=== PATIENT | female | born 1975 | race Caucasian/White ===

== ENCOUNTER → 2018-08-10 | Emergency (ER) | payer MEDICAID ==
[~2018-08-10] VITALS: Ht 165.1 cm; Wt 86.8 kg
[2018-08-10 12:17] VITALS: BP 142/70; PULSE 78; RESP 18; Ht 165.1 cm; Wt 86.8 kg
--- NOTE | 2018-08-10 15:13 | ERD ---
ER Documentation Chief Complaint Chief Complaint vag bleed x 2 days with pain , postive preg test @ home HPI 42-year-old female presents with vaginal bleeding x2 days. Patient states she had a positive test at home 1 week ago and then developed vaginal bleeding 2 days ago. She is been passing clots. G4, . LNMP April 28. Denies medical problems. NKDA. Surgical history . Social history denies ROS All systems reviewed and are negative except as per history of present illness. Allergies Allergies: Coded Allergies: No Known Allergy (Unverified , 08/10/18) PMhx/Soc Medical and Surgical Hx: pt denies Medical Hx, pt denies Surgical Hx Hx Alcohol Use: No Hx Substance Use: No Hx Tobacco Use: No Smoking Status: Never smoker FmHx Family History: No diabetes, No coronary disease, No other Physical Exam Vitals Vital Signs Date Temp Pulse Resp B/P (MAP) Pulse Ox O2 O2 Flow FiO2 Time Delivery Rate 08/10/18 97.8 78 18 142/70 100 12:17 (94) Physical Exam GENERAL: The patient is well-appearing, well-nourished, in no acute distress CHEST: Clear to auscultation bilaterally. There are no rales, wheezes or rhonchi. HEART: Regular rate and rhythm. No murmurs, clicks, rubs or gallops. ABDOMEN: Normal active bowel sounds. No distention. No organomegaly. No lateralized tenderness to palpation. BACK: No midline or flank tenderness. Result Diagram: 08/10/18 1325 Results 24 hrs Laboratory Tests Test 08/10/18 13:25 White Blood Count 7.7 10^3/ul Red Blood Count 4.64 10^6/ul Hemoglobin 12.7 g/dl Hematocrit 37.4 % Mean Corpuscular Volume 80.6 fl Mean Corpuscular Hemoglobin 27.4 pg Mean Corpuscular Hemoglobin Concent 34.0 g/dl Red Cell Distribution Width 12.7 % Platelet Count 248 10^3/UL Mean Platelet Volume 10.0 fl Immature Granulocytes % 0.500 % Neutrophils % 60.3 % Lymphocytes % 31.2 % Monocytes % 5.9 % Eosinophils % 1.2 % Basophils % 0.9 % Nucleated Red Blood Cells % 0.0 /100WBC Immature Granulocytes # 0.040 10^3/ul Neutrophils # 4.6 10^3/ul Lymphocytes # 2.4 10^3/ul Monocytes # 0.5 10^3/ul Eosinophils # 0.1 10^3/ul Basophils # 0.1 10^3/ul Nucleated Red Blood Cells # 0.0 10^3/ul Urine Color YELLOW Urine Clarity SLIGHTLY CLOUDY Urine pH 8.0 Urine Specific [place] 1.011 Urine Ketones NEGATIVE mg/dL Urine Nitrite NEGATIVE mg/dL Urine Bilirubin NEGATIVE mg/dL Urine Urobilinogen NEGATIVE mg/dL Urine Leukocyte Esterase 1+ Jeremy/ul Urine Microscopic RBC > 182 /HPF Urine Microscopic WBC 11 /HPF Urine Squamous Epithelial Cells FEW /HPF Urine Bacteria FEW /HPF Urine Hemoglobin 3+ mg/dL Urine Glucose NEGATIVE mg/dL Urine Total Protein NEGATIVE mg/dl Beta HCG, Quantitative 2061.8 mIU/ml Procedures/MDM DIAGNOSTIC IMAGING REPORT Patient: GLENIS WHALEN : 1975 Age: 42 Sex: F MR #: [id number] DOS: 08/10/18 1311 Ordering MD: AGUSTIN SIERRA PA-C Location: [facility] Room/Bed: PROCEDURE: US OB. CLINICAL INDICATION: Vaginal bleeding. TECHNIQUE: Transabdominal and transvaginal sonographic evaluation of the uterus was performed. COMPARISON: None. FINDINGS: Uterus is anteverted and measures 11.6 x 5.8 x 6.6 cm. There are small cervical Nabothian cysts. Endometrium is heterogeneously thickened with indistinct margins. No intrauterine gestational sac is seen. Right ovary measures 3.5 x 2.7 x 2.4 cm. Left ovary measures 3.3 x 2.1 x 2 cm. No suspicious adnexal masses are seen. There is no free pelvic fluid. IMPRESSION: 1. No visible intrauterine or ectopic . of unknown location. Recommend close follow-up with serial Beta HCG measurements and repeat pelvic sonogram in 7 days to exclude ectopic . MDM: 42-year-old female presenting with p vaginal bleeding. Patient does not have pelvic pain on palpation. Patient states beta hCG is 2000 however no IUP is noted on ultrasound. Patient is likely experiencing a miscarriage as she does not have severe suprapubic tenderness on palpation. Patient is recommended to return in 2 days for recheck of beta-hCG levels. Ectopic is not completely excluded. Patient does not have findings consistent with urinary tract infection. Does not require RhoGam is Rh+. Patient's hemoglobin is stable. Patient is discharged with strict ER precautions and told to follow-up with primary care. Patient is told symptoms change or worsen to return immediately to the ER. All questions answered at discharge Departure Diagnosis: Primary Impression: Threatened Condition: Stable Patient Instructions: Miscarriage (Incomplete) Referrals: COMM[facility]ITY CLIN[facility] YOU HAVE RECEIVED A MEDICAL SCREENING EXAM AND THE RESULTS INDICATE THAT YOU DO NOT HAVE A CONDITION THAT REQUIRES URGENT TREATMENT IN THE EMERGENCY DEPARTMENT. FURTHER EVALUATION AND TREATMENT OF YOUR CONDITION CAN WAIT UNTIL YOU ARE SEEN IN YOUR DOCTORS OFFICE WITHIN THE NEXT 1-2 DAYS. IT IS YOUR RESPONSIBILITY TO MAKE AN APPOINTMENT FOR FOLOW-UP CARE. IF YOU HAVE A PRIMARY DOCTOR --you should call your primary doctor and schedule an appointment IF YOU DO NOT HAVE A PRIMARY DOCTOR YOU CAN CALL OUR PHYSICIAN REFERRAL HOTLINE AT IF YOU CAN NOT AFFORD TO SEE A PHYSICIAN YOU CAN CHOSE FROM THE FOLLOWING [facility] [address] [facility] [address] [facility] [address] [facility] [address] [facility] [address] [facility]. [facility]. [address] Additional Instructions: FOLLOW UP WITH YOUR PRIMARY CARE PHYSICIAN TOMORROW.Return to this facility if you are not improving as expected. VILLA SIERRA PA-C Aug 10, 2018 15:13
== END | disposition home or self-care (01) ==
LOC: FTE 11:53
DX: O20.0 Threatened abortion (principal); Z3A.00 Weeks of gestation of pregnancy not specified
CPT/HCPCS: 36415; 76801; 76817; 81001; 84702; 85025; 86900; 86901; Z7502

== ENCOUNTER 2018-08-13 11:13 | Emergency (ER) | payer MEDICAID ==
[~2018-08-13] VITALS: Ht 167.6 cm; Wt 86.8 kg
[2018-08-13 11:24] VITALS: Ht 167.6 cm; Wt 86.8 kg
--- NOTE | 2018-08-13 14:48 | ERD ---
ER Documentation Chief Complaint Chief Complaint REPEAT BLOOD WORK & ULTRASOUND HPI Patient is a 42-year-old female with no medical problems who presents with vaginal bleeding. She was told to return for repeat quantitative hCG and ultrasound. She was seen on August 10 for the same and had an ultrasound which showed nothing in the uterus and her quantitative hCG that day was 1999. She said that she is still having some mild bleeding. She has no pain. ROS All systems reviewed and are negative except as per history of present illness. Allergies Allergies: Coded Allergies: No Known Allergy (Unverified , 08/10/18) PMhx/Soc Medical and Surgical Hx: pt denies Medical Hx Hx Alcohol Use: No Hx Substance Use: No Hx Tobacco Use: No FmHx Family History: No diabetes Physical Exam Vitals Vital Signs Date Temp Pulse Resp B/P (MAP) Pulse Ox O2 O2 Flow FiO2 Time Delivery Rate 08/13/18 98.7 62 18 139/71 98 11:24 (93) Physical Exam Const: No acute distress Head: Atraumatic Eyes: Normal Conjunctiva ENT: Normal External Ears, Nose and Mouth. Neck: Full range of motion. No meningismus. Resp: Clear to auscultation bilaterally Cardio: Regular rate and rhythm, no murmurs Abd: Soft, non tender, non distended. Normal bowel sounds Skin: No petechiae or rashes Back: No midline or flank tenderness Ext: No cyanosis, or edema Neur: Awake and alert Psych: Normal Mood and Affect Procedures/MDM Ultrasound of the pelvis read by radiology. Quantitative hCG is pending at this time. Patient is a 42-year-old female who presents with likely miscarriage. Quanti tative hCG is pending. At this level is going down I would believe this is most likely a miscarriage and the patient could be safely discharged. She will need to follow-up with her OB doctor within 1 week. She will return for any worsening symptoms. She will be signed out to the oncoming physician who will check the level of the hCG and make the final disposition. Departure Diagnosis: Primary Impression: Miscarriage Condition: Fair Patient Instructions: Miscarriage Referrals: Your OB doctor Additional Instructions: Llame al doctor nomkamlesh rogers (Referral Sources) MAANA y fiordaliza neal DORI PARA DENTRO DE NEAL SEMANA. Dgale a la secretaria que nosotros le instruimos hacer esta dori.Avise o llame si farley condicin se empeora antes de la dori. EUGENIA GARDNER MD Aug 13, 2018 14:48
--- NOTE | 2018-08-13 16:06 | EN ---
Date/Time of Note Date/Time of Note DATE: 08/13/18 TIME: 16:05 ER Progress Note Sign Out Note: Dr. robledo relayed current data and ongoing care with me. Time: Time of this note Primary Provider: meena Diagnosis: Spontaneous Pending: Patient signed out to me pending quant hCG, which at this point is 285, this is down trended from 2000, consistent with a spontaneous , patient follow-up with OB within 1 week, at discharge patient was in no distress. CHEY CARTWRIGHT MD Aug 13, 2018 16:06
[2018-08-13 16:33] VITALS: BP 116/78; PULSE 60; RESP 16
== END 2018-08-13 16:34 | disposition home or self-care (01) ==
LOC: FTE 11:13
DX: O03.9 Complete or unspecified spontaneous abortion without complication (principal)
CPT/HCPCS: 76801; 84702; Z7502; 99284